=== PATIENT | female | born 1990 | race Caucasian/White ===

== ENCOUNTER 2017-12-23 17:34 | Inpatient (IN) | payer OTHER ==
[2017-12-23 17:52] LABS: URINE BLOOD (Dip) POC Negative (NEGATIVE); URINE GLUCOSE (Dip) POC Negative (NEGATIVE); URINE KETONES (Dip) POC Negative (NEGATIVE); URINE LEUKOCYTE EST (Dip) POC Negative (NEGATIVE); URINE NITRITE (Dip) POC Negative (NEGATIVE); URINE TOTAL PROTEIN POC Negative (NEGATIVE)
[2017-12-23 19:18] LABS: ADD MAN DIFF? NO
[2017-12-23 19:23] LABS: WHITE BLOOD COUNT 9.4 10^3/ul (4.8-10.8)
[2017-12-23 19:24] LABS: BASOPHILS % 0.2 % (0.0-2.0); EOSINOPHILS # 0.1 10^3/ul (0.0-0.5); EOSINOPHILS % 1.1 % (0.0-7.0); HEMATOCRIT 36.9 % (37.0-47.0); HEMOGLOBIN 12.5 g/dl (12.0-16.0); LYMPHOCYTES # 2.7 10^3/ul (0.8-2.9); LYMPHOCYTES % 28.7 % (15.0-51.0); MEAN CORPUSCULAR HEMOGLOBIN 28.9 pg (29.0-33.0); MEAN CORPUSCULAR HGB CONC 33.9 g/dl (32.0-37.0); MEAN CORPUSCULAR VOLUME 85.2 fl (82.0-101.0); MEAN PLATELET VOLUME 12.2 fl (7.4-10.4); MONOCYTE # 0.7 10^3/ul (0.3-0.9); MONOCYTES % 7.6 % (0.0-11.0); NEUTROPHIL # 5.9 10^3/ul (1.6-7.5); NEUTROPHILS % 62.2 % (39.0-77.0); PLATELET COUNT 211 10^3/UL (140-415); RED BLOOD COUNT 4.33 10^6/ul (4.20-5.40); RED CELL DISTRIBUTION WIDTH 14.8 % (11.5-14.5)
[2017-12-23 19:31] LABS: ADD UMIC YES; UR ASCORBIC ACID NEGATIVE (NEGATIVE); UR BILIRUBIN (Dip) NEGATIVE (NEGATIVE); UR BLOOD (Dip) NEGATIVE (NEGATIVE); UR CLARITY CLEAR (CLEAR); UR COLOR STRAW (YELLOW); UR GLUCOSE (Dip) NEGATIVE (NEGATIVE); UR KETONES (Dip) NEGATIVE (NEGATIVE); UR LEUKOCYTE ESTERASE (Dip) TRACE Leu/ul (NEGATIVE); UR NITRITE (Dip) NEGATIVE (NEGATIVE); UR RBC 1 /HPF (0-5); UR SPECIFIC GRAVITY (Dip) 1.003 (1.003-1.030); UR SQUAMOUS EPITHELIAL CELL FEW /HPF (FEW); UR TOTAL PROTEIN (Dip) NEGATIVE (NEGATIVE); UR UROBILINOGEN (Dip) NEGATIVE (NEGATIVE); UR WBC 2 /HPF (0-5)
[2017-12-23 19:36] LABS: INR 0.95; PROTIME 12.8 Sec (11.9-14.9)
[2017-12-23 19:37] LABS: PARTIAL THROMBOPLASTIN TIME 28.9 Sec (25.0-35.0)
[2017-12-23 19:38] LABS: ALANINE AMINOTRANSFERASE 22 IU/L (13-69); ALBUMIN 3.7 g/dl (3.3-4.9); ALBUMIN/GLOBULIN RATIO 1.15; ALKALINE PHOSPHATASE 175 IU/L (42-121); ANION GAP 15 (8-16); ASPARTATE AMINO TRANSFERASE 21 IU/L (15-46); BILIRUBIN,INDIRECT 0.1 mg/dl (0-1.1); BILIRUBIN,TOTAL 0.1 mg/dl (0.2-1.3); BLOOD UREA NITROGEN 11 mg/dl (7-20); CALCIUM 8.9 mg/dl (8.4-10.2); CARBON DIOXIDE 20 mmol/L (21-31); CHLORIDE 106 mmol/L (97-110); GLUCOSE 90 mg/dl (70-220); POTASSIUM 4.1 mmol/L (3.5-5.1); SODIUM 137 mmol/L (135-144); TOTAL PROTEIN 6.9 g/dl (6.1-8.1); URIC ACID 4.1 mg/dl (3.1-7.9)
[2017-12-23 20:04] LABS: CREATININE 0.49 mg/dl (0.44-1.00)
[2017-12-23] MEDS ORDERED: CARBOPROST 250 MCG INJ IM (21:00)
[2017-12-23] MEDS ORDERED: LIDOCAINE 1% (MPF) 30 ML INJ INJ (21:00)
[2017-12-23] MEDS ORDERED: IBUPROFEN 600 MG TAB PO (21:00)
[2017-12-23] MEDS ORDERED: MISOPROSTOL 200 MCG TAB PR (21:00)
[2017-12-23] MEDS ORDERED: METHYLERGONOVINE 0.2 MG INJ IM (21:00)
[2017-12-23] MEDS ORDERED: OXYTOCIN 30 UNITS/LR 500 ML IV ×3 (21:00)
[2017-12-23] MEDS: MINERAL OIL LIGHT 10 ML VIAL TOP (21:00)
[2017-12-23] MEDS: LACTATED RINGER'S 1,000 ML IV (22:11)
[2017-12-23 22:17] LABS: HEPATITIS B SURFACE ANTIGEN NEGATIVE (NEGATIVE)
[2017-12-23 22:31] LABS: RAPID PLASMA REAGIN NONREACTIVE (NR)
[2017-12-23] MEDS ORDERED: MISOPROSTOL 25 MCG CAPSULE PO (23:00)
[2017-12-24] MEDS: OXYTOCIN 30 UNITS/LR 500 ML IV (02:34)
[2017-12-24] MEDS: DEXTROSE 5%-LR 1,000 ML IV (03:36)
[2017-12-24] MEDS: BUTORPHANOL 2 MG INJ IV (04:29)
[2017-12-24] MEDS ORDERED: OXYTOCIN 30 UNITS/LR 500 ML IV ×2 (04:30→12:30)
[2017-12-24] MEDS: LACTATED RINGER'S 1,000 ML IV ×3 (07:33→17:21)
[2017-12-24] MEDS ORDERED: FENTAnyl 2MCG/ML-ROPIV 0.2% 100 ML (08:01)
[2017-12-24] MEDS ORDERED: FENTAnyl 2MCG/ML-ROPIV 0.2% 100 ML BAG EPI (08:30)
[2017-12-24] MEDS ORDERED: NALOXONE (0.4 MG/ML) INJ IV ×2 (08:30→12:30)
[2017-12-24] MEDS: CEFAZOLIN 2 GM/50 ML (PMX) 50 ML IVPB (11:00)
[2017-12-24] MEDS ORDERED: FENTAnyl 50 MCG/ML VIAL (11:09)
[2017-12-24] MEDS ORDERED: OXYTOCIN 10 UNIT INJ (11:10)
[2017-12-24] MEDS ORDERED: DEXAMETHASONE 4 MG/ML 1 ML INJ (11:12)
[2017-12-24] MEDS ORDERED: MEPERIDINE 100 MG INJ (11:12)
[2017-12-24] MEDS ORDERED: ONDANSETRON 4 MG INJ (11:13)
[2017-12-24] MEDS ORDERED: KETOROLAC 30 MG INJ (11:13)
[2017-12-24] MEDS ORDERED: METOCLOPRAMIDE 10 MG INJ (11:13)
[2017-12-24] MEDS ORDERED: ESMOLOL 10 ML (11:15)
[2017-12-24] MEDS ORDERED: METHYLENE BLUE 1% 10 ML INJ (11:30)
[2017-12-24] MEDS ORDERED: morphine SULFATE/PF (10 MG/10 ML) INJ (11:58)
[2017-12-24 12:00] LABS: AADO2 Cord Arterial 67.5 mmHg; CBA Base Excess -2.4 mmol/L; CBA Oxygen Sat 65.5 mmHG; CBA Total Hemglobin 18.6 g/dl; Cord Blood Arterial pO2 24.8 mmHG (15.0-45.0); Fraction OxyHgb Cord Arterial 63.4 %; MODE ROOM AIR; MetHgb Cord Arterial 1.2 %; Sample Type CBA; Site CORD
[2017-12-24 12:01] LABS: CBV Base Excess -2.3 mmol/L; CBV COHb 1.7 %; CBV Oxygen Sat 68.5 mmHG; CBV Total Hemglobin 18.1 g/dl; Cord Blood Venous AADO2 67.1 mmHg; Cord Blood Venous pO2 28.6 mmHG (15.0-45.0); Fraction OxyHgb Cord Venous 66.5 %; MODE ROOM AIR; MetHgb Cord Venous 1.2 %; Sample Type CBV; Site CORD
[2017-12-24] MEDS ORDERED: DIPHENHYDRAMINE 50 MG INJ IV (12:30)
[2017-12-24] MEDS ORDERED: METHYLERGONOVINE 0.2 MG INJ IM (12:30)
[2017-12-24] MEDS ORDERED: morphine 2 MG INJ IV (12:30)
[2017-12-24] MEDS ORDERED: NALBUPHINE HCL (10 MG/1 ML) INJ IV (12:30)
[2017-12-24] MEDS ORDERED: ACETAMINOPHEN 500 MG TAB PO (12:30)
[2017-12-24] MEDS ORDERED: ONDANSETRON 4 MG INJ IV ×2 (12:30)
[2017-12-24] MEDS ORDERED: ZOLPIDEM 5 MG TAB PO (12:30)
[2017-12-24] MEDS ORDERED: ACETAMINOPHEN 325 MG TAB PO (12:30)
[2017-12-24] MEDS ORDERED: CARBOPROST 250 MCG INJ IM (12:30)
[2017-12-24] MEDS ORDERED: MISOPROSTOL 200 MCG TAB PR (12:30)
[2017-12-24] MEDS ORDERED: BENZOCAINE 20% 56 ML SPRAY TOP (12:30)
[2017-12-24] MEDS ORDERED: DIPHENHYDRAMINE 25 MG CAP PO (12:30)
[2017-12-24] MEDS ORDERED: HYDROCODONE/APAP (5/325) TAB PO (12:30)
[2017-12-24] MEDS ORDERED: SENNA/DOCUSATE NA (8.6MG/50MG) TAB PO (12:30)
[2017-12-24] MEDS ORDERED: WITCH HAZEL/GLYCERIN PAD PR (12:30)
[2017-12-24] MEDS ORDERED: morphine 4 MG/ML VIAL IV (12:30)
[2017-12-24] MEDS ORDERED: HYDROmorphONE 0.5 MG/0.5 ML SYG IV ×2 (12:30)
[2017-12-24 13:11] LABS: WHITE BLOOD COUNT 20.7 10^3/ul (4.8-10.8)
[2017-12-24 13:11] LABS: HEMATOCRIT 37.1 % (37.0-47.0); HEMOGLOBIN 12.6 g/dl (12.0-16.0); MEAN CORPUSCULAR HEMOGLOBIN 29.5 pg (29.0-33.0); MEAN CORPUSCULAR VOLUME 86.9 fl (82.0-101.0); MEAN PLATELET VOLUME 11.9 fl (7.4-10.4); PLATELET COUNT 230 10^3/UL (140-415); RED BLOOD COUNT 4.27 10^6/ul (4.20-5.40)
[2017-12-24 13:18] LABS: ADD MAN DIFF? YES; POSITIVE DIFF @See below
[2017-12-24 14:02] LABS: ANISOCYTOSIS 1+ (0-0); BAND NEUTROPHILS #M 5.3 10^3/ul (0.0-0.6); BAND NEUTROPHILS % (M) 26 % (0-4); LYMPHOCYTES #M 1.4 10^3/ul (0.8-2.9); LYMPHOCYTES % (M) 7 % (15-51); MICROCYTOSIS 1+ (0-0); MONOCYTE #M 0.2 10^3/ul (0.3-0.9); MONOCYTES % (M) 1 % (0-11); PLATELET ESTIMATE NORMAL; SEG NEUT #M 14.8 10^3/ul (1.7-7.5); SEGMENTED NEUTROPHILS (M) % 66 % (39-77); SMUDGE%M 4 % (0-0)
[2017-12-24] MEDS: CEFAZOLIN 2 GM/50 ML (PMX) 50 ML IV ×2 (17:20→22:02)
[2017-12-24] MEDS: SENNA/DOCUSATE NA (8.6MG/50MG) TAB PO (22:01)
[2017-12-25] MEDS: KETOROLAC 30 MG INJ IV ×2 (02:52→09:53)
[2017-12-25] MEDS: LANOLIN 7 GM TUBE TOP (02:55)
[2017-12-25] MEDS: LACTATED RINGER'S 1,000 ML IV (04:36)
[2017-12-25] MEDS: CEFAZOLIN 2 GM/50 ML (PMX) 50 ML IV (05:50)
[2017-12-25] MEDS: SENNA/DOCUSATE NA (8.6MG/50MG) TAB PO ×2 (08:23→22:06)
[2017-12-25 08:24] LABS: ADD MAN DIFF? NO
[2017-12-25 08:36] LABS: BASOPHILS % 0.1 % (0.0-2.0); EOSINOPHILS % 0.2 % (0.0-7.0); HEMATOCRIT 27.7 % (37.0-47.0); HEMOGLOBIN 9.2 g/dl (12.0-16.0); LYMPHOCYTES # 2.4 10^3/ul (0.8-2.9); LYMPHOCYTES % 22.2 % (15.0-51.0); MEAN CORPUSCULAR HEMOGLOBIN 28.9 pg (29.0-33.0); MEAN CORPUSCULAR HGB CONC 33.2 g/dl (32.0-37.0); MEAN CORPUSCULAR VOLUME 87.1 fl (82.0-101.0); MEAN PLATELET VOLUME 11.9 fl (7.4-10.4); MONOCYTE # 0.7 10^3/ul (0.3-0.9); MONOCYTES % 6.3 % (0.0-11.0); NEUTROPHIL # 7.8 10^3/ul (1.6-7.5); NEUTROPHILS % 70.8 % (39.0-77.0); PLATELET COUNT 167 10^3/UL (140-415); RED BLOOD COUNT 3.18 10^6/ul (4.20-5.40); RED CELL DISTRIBUTION WIDTH 14.9 % (11.5-14.5)
[2017-12-25] MEDS: IBUPROFEN 600 MG TAB PO ×3 (11:22→23:04)
[2017-12-25] MEDS: OXYCODONE/ASPIRIN (4.88/325) TAB PO ×2 (12:34→18:20)
[2017-12-25] MEDS: FERROUS SULFATE (EC) 325 MG TAB PO (22:06)
[2017-12-26] MEDS: OXYCODONE/ASPIRIN (4.88/325) TAB PO ×3 (04:37→21:05)
[2017-12-26] MEDS: IBUPROFEN 600 MG TAB PO ×3 (07:05→18:00)
[2017-12-26] MEDS: FERROUS SULFATE (EC) 325 MG TAB PO ×2 (09:18→21:04)
[2017-12-26] MEDS: SENNA/DOCUSATE NA (8.6MG/50MG) TAB PO ×2 (09:19→21:04)
[2017-12-26 19:33] LABS: ADD MAN DIFF? NO
[2017-12-26 19:35] LABS: WHITE BLOOD COUNT 11.6 10^3/ul (4.8-10.8)
[2017-12-26 19:35] LABS: BASOPHILS % 0.2 % (0.0-2.0); EOSINOPHILS # 0.2 10^3/ul (0.0-0.5); EOSINOPHILS % 1.6 % (0.0-7.0); HEMATOCRIT 27.2 % (37.0-47.0); LYMPHOCYTES % 25.7 % (15.0-51.0); MEAN CORPUSCULAR HEMOGLOBIN 29.2 pg (29.0-33.0); MEAN CORPUSCULAR HGB CONC 33.1 g/dl (32.0-37.0); MEAN CORPUSCULAR VOLUME 88.3 fl (82.0-101.0); MEAN PLATELET VOLUME 10.8 fl (7.4-10.4); MONOCYTE # 0.7 10^3/ul (0.3-0.9); MONOCYTES % 5.7 % (0.0-11.0); NEUTROPHIL # 7.7 10^3/ul (1.6-7.5); NEUTROPHILS % 66.3 % (39.0-77.0); PLATELET COUNT 220 10^3/UL (140-415); RED BLOOD COUNT 3.08 10^6/ul (4.20-5.40); RED CELL DISTRIBUTION WIDTH 15.1 % (11.5-14.5)
[2017-12-26 20:08] LABS: URIC ACID 4.8 mg/dl (3.1-7.9)
[2017-12-26 20:09] LABS: ALANINE AMINOTRANSFERASE 27 IU/L (13-69); ALBUMIN 3.5 g/dl (3.3-4.9); ALBUMIN/GLOBULIN RATIO 1.09; ALKALINE PHOSPHATASE 124 IU/L (42-121); ANION GAP 15 (8-16); ASPARTATE AMINO TRANSFERASE 44 IU/L (15-46); BILIRUBIN,INDIRECT 0.1 mg/dl (0-1.1); BILIRUBIN,TOTAL 0.1 mg/dl (0.2-1.3); BLOOD UREA NITROGEN 10 mg/dl (7-20); CALCIUM 9.1 mg/dl (8.4-10.2); CARBON DIOXIDE 26 mmol/L (21-31); CHLORIDE 104 mmol/L (97-110); CREATININE 0.61 mg/dl (0.44-1.00); GLUCOSE 105 mg/dl (70-220); POTASSIUM 3.8 mmol/L (3.5-5.1); SODIUM 141 mmol/L (135-144); TOTAL PROTEIN 6.7 g/dl (6.1-8.1)
[2017-12-27] MEDS: IBUPROFEN 600 MG TAB PO ×2 (00:24→05:54)
[2017-12-27] MEDS: SENNA/DOCUSATE NA (8.6MG/50MG) TAB PO (10:06)
[2017-12-27] MEDS: FERROUS SULFATE (EC) 325 MG TAB PO (10:06)
== END 2017-12-27 13:19 | disposition home or self-care (01) | DRG 766 ==
LOC: OBT 17:34 → L-D 12-24 10:57 → PP1 12-24 14:35 → OBT 20:48 → L-D 20:45
PROC: 10D00Z1 Extraction of Products of Conception, Low, Open Approach (ICD-10-PCS; principal; 2017-12-24)
PROC: 0UL70ZZ Occlusion of Bilateral Fallopian Tubes, Open Approach (ICD-10-PCS; 2017-12-24)
PROC: 3E033VJ Introduction of Other Hormone into Peripheral Vein, Percutaneous Approach (ICD-10-PCS; 2017-12-24)
DX: O34.211 Maternal care for low transverse scar from previous cesarean delivery (principal); Z30.2 Encounter for sterilization; O13.4 Gestational [pregnancy-induced] hypertension without significant proteinuria, complicating childbirth; Z37.0 Single live birth; Z3A.39 39 weeks gestation of pregnancy
CPT/HCPCS: 36415; 36600; 76818; 80053; 81001; 81003; 82803; 84560; 85025; 85384; 85610; 85730; 86592; 86885; 86900; 86901; 87340; 88302; 94760; 99464